=== PATIENT | male | born 1970 | race Caucasian/White ===

== ENCOUNTER 2023-03-14 06:27 | Day surgery (SDC) | payer BC ==
[~2023-03-14] VITALS: Ht 188 cm; Wt 100.9 kg
[~2023-03-14 06:27] MED LIST: ALLEGRA ALLERG180 MG PO; METOPROLOL SUCC25 MG PO; NORVASC5 MG PO; VITAMIN D310 MC4 PO
[2023-03-14 06:42] VITALS: BP 138/88
[2023-03-14 09:15] VITALS: BP 125/95
--- NOTE | 2023-03-14 10:03 | OR ---
[facility] [address], [place] [address] Signed DATE OF OPERATION: 03/14/2023 SURGEON: Ashley Lowe MD PREOPERATIVE DIAGNOSIS: Screening. POSTOPERATIVE DIAGNOSIS: Minimal to moderate sigmoid diverticulosis. PROCEDURE: Colonoscopy without biopsy. ESTIMATED BLOOD LOSS: None. INDICATIONS: Beni is a 52-year-old gentleman, who happens to be at our facilities here at [facility]. He was asked to see me for his initial screening colonoscopy. He has no lower GI complaints. There is no family history of colon cancer or polyps. I helped Beni with an upper endoscopy back in 2005. Consequently, he is familiar with this process. In the office, I gave Beni a pamphlet on colonoscopy. We reviewed the nature of the test. There is risk including, but not limited to gas bloating, crampy abdominal pain, bleeding, perforation requiring surgery, and missed diagnosis. We also reviewed the written instructions for a bowel prep line by line. He also understands the need for IV conscious sedation. He has done well with Versed and fentanyl in the past for his upper endoscopy. He understands that an adult person has to take him home afterwards. He had expressed understanding and wished to proceed. PROCEDURE NOTE: Beni was taken into our endoscopy suite and placed in the left lateral decubitus position. He was given IV sedation with 12 mg of Versed and 200 mcg of fentanyl. He was very close to needing monitored anesthesia care with propofol infusion. We had done a digital rectal exam and it was unremarkable. He had no external hemorrhoids. He has good sphincter tone. There were no masses. His prostate is starting to get indurated and enlarged. The adult colonoscope had been introduced and advanced under direct visualization of the camera. It did take a little while to get through his sigmoid colon. It took extra sedation and some mild abdominal compression in order to get the scope directly into the cecum itself. Fortunately, his prep was quite good. We could easily see the appendiceal orifice and the ileocecal valve. The scope was then slowly Electronically Signed By: ASHLEY LOWE MD 03/14/23 1003 PATIENT NAME: BENI LARA OPERATIVE REPORT DATE OF : 70 REPORT #: [id number] PHYSICIAN: ASHLEY LOWE MD PCP: IESHA BROWN REPORT IS CONFIDENTIAL AND NOT TO BE RELEASED WITHOUT AUTHORIZATION [facility] [address], [place] [address] Signed withdrawn. He had no polyps throughout the colon or rectum. He does have diverticula in the sigmoid colon. They are moderate in size, few in number and scattered about. Once in the rectum, the scope had been retroflexed and there was no additional pathology noted above the anal canal. After this, the gas was suctioned out and colonoscope removed. Overall, Beni tolerated the procedure quite well. RECOMMENDATIONS: Beni can follow up in 10 years for repeat colonoscopy. He might benefit from monitored anesthesia care with propofol infusion, particularly 10 years from now. Ashley Lowe MD ALB/MODL /[id number] cc: MADY Ortiz MD Copies: ASHLEY LOWE MD ~ Electronically Signed By: ASHLEY LOWE MD 03/14/23 1003 PATIENT NAME: BENI LARA OPERATIVE REPORT DATE OF : 70 REPORT #: [id number] PHYSICIAN: ASHLEY LOWE MD PCP: IESHA BROWN REPORT IS CONFIDENTIAL AND NOT TO BE RELEASED WITHOUT AUTHORIZATION
== END 2023-03-14 09:25 | disposition home or self-care (01) ==
LOC: OPS 06:27 → DS 06:27 → OPS 07:30
PROVIDERS: ATTEND Colon & Rectal Surgery
PROC: 0DJD8ZZ Inspection of Lower Intestinal Tract, Via Natural or Artificial Opening Endoscopic (ICD-10-PCS; principal; 2023-03-14 07:30)
DX: Z12.11 Encounter for screening for malignant neoplasm of colon (principal); K57.30 Diverticulosis of large intestine without perforation or abscess without bleeding; I10 Essential (primary) hypertension; G47.33 Obstructive sleep apnea (adult) (pediatric); E78.5 Hyperlipidemia, unspecified; Z88.0 Allergy status to penicillin; Z88.2 Allergy status to sulfonamides; Z88.8 Allergy status to other drugs, medicaments and biological substances; Z79.899 Other long term (current) drug therapy
CPT/HCPCS: 99153; G0500; J2250; J3010; J7121